=== PATIENT | male | born 1970 | race Caucasian/White ===

== ENCOUNTER → 2021-09-08 | Outpatient (CLI) | payer OTHER ==
[~2021-09-08] MED LIST: AUGMENTIN 875-1 EACH PO; BACTRIM DS TAB1 EACH PO; BACTROBAN OINT22 GM EXT; BENTYL 20MG TAB20 MG PO; CIPRO500 MG PO; CLEOCIN HCL300 MG PO; FLAGYL500 MG PO; FLOMAX0.4 MG PO; IBUPROFEN600 MG PO; NORCO 7.5-3251 EACH PO; VIBRAMYCIN 100100 MG PO; ZANTAC150 MG PO; ZOFRAN ODT 4 MG4 MG SL
[2021-09-09 11:13] LABS: HBSAG SCREEN Negative (Negative); HEP A AB, IGM Negative (Negative); HEP B CORE AB, IGM Negative (Negative); HEP C VIRUS AB <0.1 (0.0-0.9)
[2021-09-09 14:13] LABS: ALPHA-1-ANTITRYPSIN, SERUM 101 mg/dL (101-187)
[2021-09-09 15:13] LABS: MITOCHONDRIAL (M2) ANTIBODY <20.0 Units (0.0-20.0)
== END ==
LOC: LAB 12:16
PROVIDERS: Internal Medicine Gastroenterology
DX: R94.5 Abnormal results of liver function studies (principal)
CPT/HCPCS: 36415; 80074; 80076; 82103; 82728; 83540; 83550; 86038

== ENCOUNTER 2022-04-10 17:34 | Inpatient (IN) | payer OTHER ==
[~2022-04-10] VITALS: Ht 193 cm; Wt 103.4 kg
[2022-04-10 18:19] LABS: HEMOGLOBIN 14.8 gm/dl (14.0-17.5); RED BLOOD COUNT 4.44 M/UL (4.20-5.50); WHITE BLOOD COUNT 7.2 K/UL (4.5-11.0)
[2022-04-10 18:37] LABS: BUN/CREATININE RATIO 6 (0-10)
[2022-04-11 01:12] LABS: WHITE BLOOD COUNT 5.5 K/UL (4.5-11.0)
[2022-04-11 01:26] LABS: HEMOGLOBIN 12.7 gm/dl (14.0-17.5); RED BLOOD COUNT 3.83 M/UL (4.20-5.50)
[2022-04-11 01:29] LABS: BUN/CREATININE RATIO 7 (0-10)
[2022-04-11] MEDS ORDERED: GABAPENTIN300 MG PO (10:06)
[2022-04-11] MEDS ORDERED: IBU800 MG PO (10:06)
[2022-04-11] MEDS ORDERED: ATENOLOL25 MG PO (10:07)
[2022-04-11] MEDS ORDERED: DIAZEPAM5 MG PO (10:07)
[2022-04-11] MEDS ORDERED: MIRTAZAPINE30 MG PO (10:09)
[2022-04-11] MEDS ORDERED: GLEEVEC400 MG PO (11:14)
== END 2022-04-11 17:17 | disposition short-term general hospital (02) | DRG 271 ==
LOC: ER1 17:34 → CDU 18:57 → ER1 04-11 07:30 → PROG CARE 04-11 07:41
PROVIDERS: Emergency Medicine; ADMIT Internal Medicine
PROC: 5A02210 Assistance with Cardiac Output using Balloon Pump, Continuous (ICD-10-PCS; principal; 2022-04-11)
PROC: 4A023N7 Measurement of Cardiac Sampling and Pressure, Left Heart, Percutaneous Approach (ICD-10-PCS; 2022-04-11)
PROC: B2111ZZ Fluoroscopy of Multiple Coronary Arteries using Low Osmolar Contrast (ICD-10-PCS; 2022-04-11)
PROC: B2151ZZ Fluoroscopy of Left Heart using Low Osmolar Contrast (ICD-10-PCS; 2022-04-11)
DX: I21.4 Non-ST elevation (NSTEMI) myocardial infarction (principal); C92.10 Chronic myeloid leukemia, BCR/ABL-positive, not having achieved remission; K76.0 Fatty (change of) liver, not elsewhere classified; Z20.822 Contact with and (suspected) exposure to COVID-19; I10 Essential (primary) hypertension; Z96.698 Presence of other orthopedic joint implants; E87.6 Hypokalemia; I25.5 Ischemic cardiomyopathy; F17.210 Nicotine dependence, cigarettes, uncomplicated; Z90.49 Acquired absence of other specified parts of digestive tract; Z88.8 Allergy status to other drugs, medicaments and biological substances; Z91.040 Latex allergy status; Z82.49 Family history of ischemic heart disease and other diseases of the circulatory system; Z98.890 Other specified postprocedural states
CPT/HCPCS: 36415; 71045; 80048; 80053; 80307; 81001; 82550; 82553; 82962; 83036; 83735; 84484; 85025; 85027; 85610; 85730; 93005; 96374; 96375; 96376; 99152; 99153; 99285; C1769; C1894; J1644; J2060; J2250; J3010; J7040; Q9967